=== PATIENT | female | born 1990 | race Two or more races ===

== ENCOUNTER 2016-09-23 06:13 | Emergency (ER) | payer SELFPAY ==
[~2016-09-23] VITALS: Ht 175.3 cm; Wt 102.5 kg
[2016-09-23 07:31] VITALS: BP 99/78
[2016-09-23] MEDS ORDERED: methylPREDNISolone SOD SUCC 125 MG/2 ML VL ONE (08:00)
[2016-09-23] MEDS ORDERED: methylPREDNISolone SOD SUCC 125 MG/2 ML VL IM ONE (08:15)
[2016-09-23] MEDS ORDERED: IPRATROPIUM BROM 0.5 MG/2.5ML INH SOL NEB PRN (08:15)
[2016-09-23] MEDS ORDERED: ALBUTEROL SULF 2.5 MG/0.5ML(0.5%) NEB SOLN HHN ONE (08:15)
== END 2016-09-23 11:08 | disposition home or self-care (01) ==
LOC: ER 06:24
DX: J40 Bronchitis, not specified as acute or chronic (principal)
CPT/HCPCS: 71020; 81025; 94640; 96372; 99284; J2930